=== PATIENT | female | born 1965 | race Caucasian/White ===

== ENCOUNTER 2020-10-16 11:43 | Inpatient (IN) ==
[2020-10-16] MEDS ORDERED: Morphine 4 MG/ML VIAL (1 ml) IV ONE (12:10)
[2020-10-16] MEDS ORDERED: Ondansetron 4 mg VIAL 2 MG/ML 2 ml VIAL IV ONE (12:10)
[2020-10-16] MEDS ORDERED: NS 0.9% 1000 ml BAG 1,000 ML IV ONE ×2 (12:10→14:20)
[2020-10-16 12:33] LABS: ABS Monocytes 0.6 10^3/ul (0-0.8); ABS Neutrophils 6.9 10^3/ul (1.5-7.7); Eosinophil % 0.3 %; Hematocrit 36 % (35-47); Hemoglobin 12.2 g/dL (12.0-16.0); Mean Corpuscular HGB Conc 34 g/dL (31-36); Mean Corpuscular Hemoglobin 33 pg (27-31); Mean Corpuscular Volume 97 fL (80-97); Mean Platelet Volume 7.7 fL (7.4-10.4); Platelet Count 303 10^3/uL (150-450); Red Blood Count 3.74 10^6 /uL (3.70-4.87); Red Cell Distribution Width 14 % (10-15); White Blood Count 8.5 10^3/uL (3.5-10.8)
[2020-10-16 12:51] LABS: Albumin 3.9 g/dL (3.2-5.2); Albumin/Globulin Ratio 0.9 (1-3); BUN/Creatinine Ratio 13.7 (8-20); C Reactive Protein 107.56 mg/L (<8.01); Calcium 9.5 mg/dL (8.6-10.3); EGFR African American 99.8 (>60); EGFR Non-African American 82.5 (>60); Globulin 4.4 g/dL (2-4); Magnesium 1.8 mg/dL (1.9-2.7); Total Bilirubin 1.5 mg/dL (0.2-1.0); Total Protein 8.3 g/dL (6.4-8.9)
[2020-10-16] MEDS ORDERED: fentaNYL 100 mcg/2 ml 50 MCG/ML VIAL IV SLOW PU ONE (14:55)
[2020-10-16] MEDS ORDERED: Iohexol 300 (CONTRAST) 10 ML SDV IV ONE (15:06)
[2020-10-16] MEDS ORDERED: Piperacillin/Tazobac ADVAN 3.375 GM in NS 0.9% 100 ml BAG 100 ML IV ONE (16:02)
[2020-10-16 16:57] LABS: Urine Appearance Clear; Urine Bilirubin Negative (Negative); Urine Blood Negative (Negative); Urine Color Yellow; Urine Glucose Negative (Negative); Urine Ketones Trace (Negative); Urine Nitrite Negative (Negative); Urine Protein Negative (Negative); Urine Urobilinogen Negative (Negative)
[2020-10-16 17:31] LABS: Urine Specific Gravity > 1.059 (1.010-1.030)
[2020-10-16] MEDS ORDERED: Morphine 2 MG/ML SYRINGE IV PRN (18:41)
[2020-10-16] MEDS ORDERED: Zosyn per Pharmacy NOTE FOLLOW UP SCH (19:00)
[2020-10-16] MEDS ORDERED: HYDROcodone/ACETAMIN 5/325 mg TAB PO PRN (20:39)
[2020-10-16] MEDS: NS 0.9% 1000 ml BAG 1,000 ML IV SCH (21:37)
[2020-10-16] MEDS: ZOSYN 3.375 GM Q8H per EXTENDED INFUSION IV SCH (21:37)
[2020-10-17] MEDS: ZOSYN 3.375 GM Q8H per EXTENDED INFUSION IV SCH ×3 (05:07→22:17)
[2020-10-17 06:19] LABS: ABS Eosinophils 0.1 10^3/ul (0-0.6); ABS Lymphocytes 1.5 10^3/ul (1.0-4.8); ABS Monocytes 0.5 10^3/ul (0-0.8); ABS Neutrophils 3.4 10^3/ul (1.5-7.7); Eosinophil % 1.7 %; Hematocrit 32 % (35-47); Hemoglobin 10.7 g/dL (12.0-16.0); Lymphocyte % 27.4 %; Mean Corpuscular HGB Conc 33 g/dL (31-36); Mean Corpuscular Hemoglobin 32 pg (27-31); Mean Corpuscular Volume 98 fL (80-97); Mean Platelet Volume 7.7 fL (7.4-10.4); Platelet Count 240 10^3/uL (150-450); Red Blood Count 3.31 10^6 /uL (3.70-4.87); Red Cell Distribution Width 14 % (10-15); White Blood Count 5.5 10^3/uL (3.5-10.8)
[2020-10-17 06:39] LABS: Albumin 3.2 g/dL (3.2-5.2); Albumin/Globulin Ratio 0.8 (1-3); BUN/Creatinine Ratio 12.3 (8-20); C Reactive Protein 73.04 mg/L (<8.01); Calcium 8.5 mg/dL (8.6-10.3); EGFR African American 99.8 (>60); EGFR Non-African American 82.5 (>60); Globulin 3.8 g/dL (2-4); Magnesium 1.9 mg/dL (1.9-2.7); Potassium 3.7 mmol/L (3.5-5.0); Total Bilirubin 1.1 mg/dL (0.2-1.0)
[2020-10-17] MEDS: NS 0.9% 1000 ml BAG 1,000 ML IV SCH (08:21)
[2020-10-17] MEDS: Ondansetron 4 mg VIAL 2 MG/ML 2 ml VIAL IV PRN (12:20)
[2020-10-17] MEDS ORDERED: HYDROmorphone 0.5 MG/0.5 ML SYRINGE IV PRN (12:33)
[2020-10-17 13:23] LABS: ABS Lymphocytes 0.8 10^3/ul (1.0-4.8); ABS Monocytes 0.3 10^3/ul (0-0.8); ABS Neutrophils 7.3 10^3/ul (1.5-7.7); Eosinophil % 0.4 %; Hematocrit 34 % (35-47); Hemoglobin 11.3 g/dL (12.0-16.0); Lymphocyte % 9.4 %; Mean Corpuscular HGB Conc 34 g/dL (31-36); Mean Corpuscular Hemoglobin 33 pg (27-31); Mean Corpuscular Volume 97 fL (80-97); Mean Platelet Volume 7.8 fL (7.4-10.4); Platelet Count 270 10^3/uL (150-450); Red Blood Count 3.45 10^6 /uL (3.70-4.87); Red Cell Distribution Width 14 % (10-15); White Blood Count 8.5 10^3/uL (3.5-10.8)
[2020-10-17 13:33] LABS: Albumin 3.5 g/dL (3.2-5.2); Albumin/Globulin Ratio 0.9 (1-3); BUN/Creatinine Ratio 13.4 (8-20); CRP High Sensitivity 60.32 mg/L (<2.00); Calcium 8.7 mg/dL (8.6-10.3); EGFR African American 110.2 (>60); Potassium 4.1 mmol/L (3.5-5.0); Total Bilirubin 1.3 mg/dL (0.2-1.0); Total Protein 7.5 g/dL (6.4-8.9)
[2020-10-17] MEDS ORDERED: Rocuronium 50 mg VIAL 10 mg/ml 5 ml VIAL (50 mg) ONE ×2 (14:45→17:18)
[2020-10-17] MEDS ORDERED: Midazolam 2 mg/2 ml VIAL 1 mg/ml 2 ml VIAL (2 mg) ONE (14:45)
[2020-10-17] MEDS ORDERED: Propofol 10 MG/ML 20 ML BTL ONE (14:46)
[2020-10-17] MEDS ORDERED: fentaNYL 250 mcg/5 ml 50 MCG/ML 5 ml VIAL (250 MCG) ONE (14:46)
[2020-10-17] MEDS ORDERED: HYDROmorphone 1 MG/1 ML SYRINGE ONE ×2 (16:05→19:19)
[2020-10-17] MEDS ORDERED: Ondansetron 4 mg VIAL 2 MG/ML 2 ml VIAL ONE ×2 (18:06→19:20)
[2020-10-17] MEDS ORDERED: Sugammadex 500 MG/5 ML 5 ml VIAL IV PUSH ONE (18:06)
[2020-10-17] MEDS ORDERED: Naloxone 0.4 mg VIAL 0.4 mg/ml 1 ml VIAL IV PRN (19:16)
[2020-10-17] MEDS ORDERED: Acetaminophen IV 1 GM/100ML 1,000 MG/100 ML VIAL IVPB ONE (19:16)
[2020-10-17] MEDS ORDERED: DiMENhydriNATE IV 50 mg/ml 1 ml VIAL IV PUSH PRN (19:16)
[2020-10-17] MEDS ORDERED: Ondansetron 4 mg VIAL 2 MG/ML 2 ml VIAL IV PRN (19:16)
[2020-10-17] MEDS ORDERED: Acetaminophen IV 1 GM/100ML 100 ML ONE (19:20)
[2020-10-17] MEDS ORDERED: Naloxone 0.4 mg VIAL 0.4 mg/ml 1 ml VIAL IV PUSH PRN (19:27)
[2020-10-17] MEDS: HYDROmorphone 1 MG/1 ML SYRINGE IV PRN ×2 (19:27→19:39)
[2020-10-17] MEDS ORDERED: fentaNYL 100 mcg/2 ml 50 MCG/ML VIAL ONE ×2 (19:28→19:37)
[2020-10-17] MEDS: fentaNYL 100 mcg/2 ml 50 MCG/ML VIAL IV PRN ×4 (19:29→19:50)
[2020-10-17] MEDS ORDERED: DiMENhydriNATE IV 50 mg/ml 1 ml VIAL ONE (19:42)
[2020-10-17] MEDS ORDERED: HYDROmorphone PCA 20 MG/20 ML PCA.SYRING PCA SCH (20:00)
[2020-10-17] MEDS ORDERED: Vancomycin SOL ORALSYR 50 MG/ML ML PO SCH (22:00)
[2020-10-18] MEDS: D5W 1/2 NS IVFLUID 1000 ML IV SCH ×2 (01:05→18:44)
[2020-10-18] MEDS: ZOSYN 3.375 GM Q8H per EXTENDED INFUSION IV SCH ×3 (04:04→20:47)
[2020-10-18 05:56] LABS: ABS Lymphocytes 1.5 10^3/ul (1.0-4.8); ABS Monocytes 0.6 10^3/ul (0-0.8); ABS Neutrophils 9.4 10^3/ul (1.5-7.7); Eosinophil % 0.4 %; Hematocrit 35 % (35-47); Hemoglobin 10.9 g/dL (12.0-16.0); Lymphocyte % 13.1 %; Mean Corpuscular HGB Conc 32 g/dL (31-36); Mean Corpuscular Hemoglobin 32 pg (27-31); Mean Corpuscular Volume 100 fL (80-97); Mean Platelet Volume 7.5 fL (7.4-10.4); Nucleated Red Blood Cells % 0.1; Platelet Count 292 10^3/uL (150-450); Red Blood Count 3.45 10^6 /uL (3.70-4.87); Red Cell Distribution Width 15 % (10-15); White Blood Count 11.6 10^3/uL (3.5-10.8)
[2020-10-18 06:00] LABS: Albumin 3.2 g/dL (3.2-5.2); Albumin/Globulin Ratio 0.9 (1-3); BUN/Creatinine Ratio 11.9 (8-20); Calcium 8.3 mg/dL (8.6-10.3); EGFR African American 110.2 (>60); Globulin 3.7 g/dL (2-4); Magnesium 1.7 mg/dL (1.9-2.7); Potassium 4.1 mmol/L (3.5-5.0); Total Bilirubin 1.2 mg/dL (0.2-1.0); Total Protein 6.9 g/dL (6.4-8.9)
[2020-10-18] MEDS ORDERED: Magnesium Sulfate 2 gm BAG 2 GM/50 ML BAG IVPB ONE (07:27)
[2020-10-18] MEDS ORDERED: HYDROmorphone PCA 20 MG/20 ML PCA.SYRING PCA SCH (08:59)
[2020-10-18] MEDS: Enoxaparin 40 MG/0.4 ML SYR SUBCUT SCH (14:02)
[2020-10-18] MEDS ORDERED: HYDROmorphone 1 MG/1 ML SYRINGE IV SLOW PU ONE (17:52)
[2020-10-18 18:18] LABS: ABS Eosinophils 0.1 10^3/ul (0-0.6); ABS Lymphocytes 1.4 10^3/ul (1.0-4.8); ABS Monocytes 0.7 10^3/ul (0-0.8); ABS Neutrophils 9.7 10^3/ul (1.5-7.7); Eosinophil % 0.6 %; Hematocrit 28 % (35-47); Hemoglobin 9.2 g/dL (12.0-16.0); Lymphocyte % 11.7 %; Mean Corpuscular HGB Conc 33 g/dL (31-36); Mean Corpuscular Hemoglobin 32 pg (27-31); Mean Corpuscular Volume 98 fL (80-97); Mean Platelet Volume 7.8 fL (7.4-10.4); Platelet Count 253 10^3/uL (150-450); Red Blood Count 2.84 10^6 /uL (3.70-4.87); Red Cell Distribution Width 15 % (10-15); White Blood Count 11.9 10^3/uL (3.5-10.8)
[2020-10-18 18:32] LABS: Albumin 2.8 g/dL (3.2-5.2); Albumin/Globulin Ratio 0.9 (1-3); BUN/Creatinine Ratio 12.5 (8-20); EGFR African American 101.4 (>60); EGFR Non-African American 83.8 (>60); Globulin 3.2 g/dL (2-4); Potassium 3.9 mmol/L (3.5-5.0); Total Bilirubin 1.1 mg/dL (0.2-1.0)
[2020-10-18] MEDS ORDERED: HYDROmorphone 1 MG/1 ML SYRINGE IV SLOW PU PRN (18:50)
[2020-10-18] MEDS: Ondansetron 4 mg VIAL 2 MG/ML 2 ml VIAL IV PRN (21:18)
[2020-10-19] MEDS: ZOSYN 3.375 GM Q8H per EXTENDED INFUSION IV SCH ×3 (03:40→19:55)
[2020-10-19 05:05] LABS: ABS Eosinophils 0.2 10^3/ul (0-0.6); ABS Lymphocytes 1.6 10^3/ul (1.0-4.8); ABS Monocytes 0.7 10^3/ul (0-0.8); ABS Neutrophils 7.6 10^3/ul (1.5-7.7); Eosinophil % 1.7 %; Hematocrit 26 % (35-47); Hemoglobin 8.7 g/dL (12.0-16.0); Lymphocyte % 15.5 %; Mean Corpuscular HGB Conc 33 g/dL (31-36); Mean Corpuscular Hemoglobin 33 pg (27-31); Mean Corpuscular Volume 99 fL (80-97); Mean Platelet Volume 7.3 fL (7.4-10.4); Platelet Count 244 10^3/uL (150-450); Red Blood Count 2.65 10^6 /uL (3.70-4.87); Red Cell Distribution Width 15 % (10-15)
[2020-10-19 05:21] LABS: Albumin 2.8 g/dL (3.2-5.2); Albumin/Globulin Ratio 0.9 (1-3); BUN/Creatinine Ratio 11.7 (8-20); EGFR African American 74.5 (>60); EGFR Non-African American 61.6 (>60); Globulin 3.2 g/dL (2-4); Magnesium 2.1 mg/dL (1.9-2.7); Potassium 3.5 mmol/L (3.5-5.0); Total Bilirubin 1.1 mg/dL (0.2-1.0)
[2020-10-19] MEDS: D5W 1/2 NS IVFLUID 1000 ML IV SCH (05:57)
[2020-10-19] MEDS: D5W 1/2 NS 1000 ml BAG 1,000 ML IV SCH (11:52)
[2020-10-19] MEDS: Enoxaparin 40 MG/0.4 ML SYR SUBCUT SCH (14:00)
[2020-10-19] MEDS: HYDROmorphone PCA 20 MG/20 ML PCA.SYRING PCA SCH (15:52)
[2020-10-20] MEDS: Ondansetron 4 mg VIAL 2 MG/ML 2 ml VIAL IV PRN (00:53)
[2020-10-20] MEDS: D5W 1/2 NS 1000 ml BAG 1,000 ML IV SCH ×2 (02:38→17:07)
[2020-10-20] MEDS: ZOSYN 3.375 GM Q8H per EXTENDED INFUSION IV SCH ×3 (05:42→20:27)
[2020-10-20 06:00] LABS: BUN/Creatinine Ratio 9.9 (8-20); Calcium 7.9 mg/dL (8.6-10.3); EGFR Non-African American 85.2 (>60); Potassium 3.5 mmol/L (3.5-5.0)
[2020-10-20 06:02] LABS: ABS Eosinophils 0.2 10^3/ul (0-0.6); ABS Lymphocytes 1.6 10^3/ul (1.0-4.8); ABS Monocytes 0.6 10^3/ul (0-0.8); ABS Neutrophils 4.8 10^3/ul (1.5-7.7); Eosinophil % 2.9 %; Hematocrit 26 % (35-47); Hemoglobin 8.5 g/dL (12.0-16.0); Lymphocyte % 21.8 %; Mean Corpuscular HGB Conc 33 g/dL (31-36); Mean Corpuscular Hemoglobin 32 pg (27-31); Mean Corpuscular Volume 97 fL (80-97); Mean Platelet Volume 7.6 fL (7.4-10.4); Platelet Count 256 10^3/uL (150-450); Red Blood Count 2.64 10^6 /uL (3.70-4.87); Red Cell Distribution Width 14 % (10-15); White Blood Count 7.2 10^3/uL (3.5-10.8)
[2020-10-20] MEDS: Enoxaparin 40 MG/0.4 ML SYR SUBCUT SCH (13:40)
[2020-10-20] MEDS ORDERED: Scopolamine PATCH Remove NOTE PATCH OFF ONE (19:17)
[2020-10-21] MEDS: ZOSYN 3.375 GM Q8H per EXTENDED INFUSION IV SCH ×3 (05:38→20:59)
[2020-10-21] MEDS: D5W 1/2 NS 1000 ml BAG 1,000 ML IV SCH ×2 (05:42→19:45)
[2020-10-21 06:16] LABS: ABS Eosinophils 0.2 10^3/ul (0-0.6); ABS Lymphocytes 1.2 10^3/ul (1.0-4.8); ABS Monocytes 0.5 10^3/ul (0-0.8); ABS Neutrophils 2.8 10^3/ul (1.5-7.7); Eosinophil % 3.9 %; Hematocrit 26 % (35-47); Hemoglobin 8.7 g/dL (12.0-16.0); Lymphocyte % 25.9 %; Mean Corpuscular HGB Conc 34 g/dL (31-36); Mean Corpuscular Hemoglobin 33 pg (27-31); Mean Corpuscular Volume 97 fL (80-97); Mean Platelet Volume 7.6 fL (7.4-10.4); Platelet Count 247 10^3/uL (150-450); Red Blood Count 2.68 10^6 /uL (3.70-4.87); Red Cell Distribution Width 15 % (10-15); White Blood Count 4.7 10^3/uL (3.5-10.8)
[2020-10-21 06:31] LABS: BUN/Creatinine Ratio 4.7 (8-20); Calcium 7.8 mg/dL (8.6-10.3); EGFR African American 116.1 (>60)
[2020-10-21 06:46] LABS: Potassium 3.4 mmol/L (3.5-5.0)
[2020-10-21] MEDS ORDERED: Potassium Chlor 20 meq TAB.ER PO ONE (07:59)
[2020-10-21] MEDS: Enoxaparin 40 MG/0.4 ML SYR SUBCUT SCH (13:22)
[2020-10-22] MEDS: ZOSYN 3.375 GM Q8H per EXTENDED INFUSION IV SCH ×3 (04:57→20:28)
[2020-10-22 05:43] LABS: ABS Eosinophils 0.2 10^3/ul (0-0.6); ABS Lymphocytes 1.6 10^3/ul (1.0-4.8); ABS Monocytes 0.6 10^3/ul (0-0.8); ABS Neutrophils 2.5 10^3/ul (1.5-7.7); Eosinophil % 3.7 %; Hematocrit 25 % (35-47); Hemoglobin 8.3 g/dL (12.0-16.0); Lymphocyte % 33.2 %; Mean Corpuscular HGB Conc 33 g/dL (31-36); Mean Corpuscular Hemoglobin 32 pg (27-31); Mean Corpuscular Volume 98 fL (80-97); Mean Platelet Volume 7.4 fL (7.4-10.4); Platelet Count 278 10^3/uL (150-450); Red Blood Count 2.58 10^6 /uL (3.70-4.87); Red Cell Distribution Width 14 % (10-15); White Blood Count 4.9 10^3/uL (3.5-10.8)
[2020-10-22 06:01] LABS: BUN/Creatinine Ratio 2.8 (8-20); Calcium 8.1 mg/dL (8.6-10.3); EGFR Non-African American 85.2 (>60); Potassium 4.2 mmol/L (3.5-5.0)
[2020-10-22] MEDS: HYDROmorphone PCA 20 MG/20 ML PCA.SYRING PCA SCH (06:19)
[2020-10-22] MEDS: D5W 1/2 NS 1000 ml BAG 1,000 ML IV SCH ×2 (07:59→20:31)
[2020-10-22] MEDS ORDERED: HYDROmorphone 0.5 MG/0.5 ML SYRINGE IV SLOW PU PRN (08:35)
[2020-10-22] MEDS ORDERED: HYDROcodone/ACETAMIN 5/325 mg TAB PO PRN (08:36)
[2020-10-22] MEDS: Enoxaparin 40 MG/0.4 ML SYR SUBCUT SCH (13:51)
[2020-10-22] MEDS ORDERED: HYDROmorphone PCA 20 MG/20 ML PCA.SYRING PCA SCH (14:35)
[2020-10-22] MEDS: Ondansetron 4 mg VIAL 2 MG/ML 2 ml VIAL IV PRN (23:15)
[2020-10-23] MEDS: ZOSYN 3.375 GM Q8H per EXTENDED INFUSION IV SCH ×3 (04:37→21:32)
[2020-10-23 06:29] LABS: ABS Eosinophils 0.2 10^3/ul (0-0.6); ABS Lymphocytes 1.4 10^3/ul (1.0-4.8); ABS Monocytes 0.5 10^3/ul (0-0.8); ABS Neutrophils 2.7 10^3/ul (1.5-7.7); Eosinophil % 3.7 %; Hematocrit 25 % (35-47); Hemoglobin 8.8 g/dL (12.0-16.0); Lymphocyte % 28.4 %; Mean Corpuscular HGB Conc 35 g/dL (31-36); Mean Corpuscular Hemoglobin 34 pg (27-31); Mean Corpuscular Volume 97 fL (80-97); Mean Platelet Volume 7.3 fL (7.4-10.4); Nucleated Red Blood Cells % 0.1; Platelet Count 294 10^3/uL (150-450); Red Cell Distribution Width 15 % (10-15); White Blood Count 4.8 10^3/uL (3.5-10.8)
[2020-10-23 06:46] LABS: BUN/Creatinine Ratio 3.2 (8-20); Calcium 8.2 mg/dL (8.6-10.3); EGFR African American 118.3 (>60); EGFR Non-African American 97.8 (>60); Potassium 3.5 mmol/L (3.5-5.0)
[2020-10-23] MEDS: Ondansetron 4 mg VIAL 2 MG/ML 2 ml VIAL IV PRN ×2 (11:07→17:26)
[2020-10-23] MEDS ORDERED: HYDROmorphone PCA 20 MG/20 ML PCA.SYRING PCA SCH (11:08)
[2020-10-23] MEDS: Enoxaparin 40 MG/0.4 ML SYR SUBCUT SCH (12:58)
[2020-10-24] MEDS: D5W 1/2 NS 1000 ml BAG 1,000 ML IV SCH (00:53)
[2020-10-24] MEDS: ZOSYN 3.375 GM Q8H per EXTENDED INFUSION IV SCH (04:37)
[2020-10-24] MEDS ORDERED: Calcium Carb (TUMS) 500 mg CHEW TAB PO PRN (06:32)
[2020-10-24 07:12] LABS: ABS Basophils 0.1 10^3/ul (0-0.2); ABS Eosinophils 0.2 10^3/ul (0-0.6); ABS Lymphocytes 1.5 10^3/ul (1.0-4.8); ABS Monocytes 0.6 10^3/ul (0-0.8); ABS Neutrophils 4.6 10^3/ul (1.5-7.7); Eosinophil % 2.8 %; Hematocrit 27 % (35-47); Hemoglobin 9.1 g/dL (12.0-16.0); Lymphocyte % 21.4 %; Mean Corpuscular HGB Conc 34 g/dL (31-36); Mean Corpuscular Hemoglobin 33 pg (27-31); Mean Corpuscular Volume 97 fL (80-97); Mean Platelet Volume 7.1 fL (7.4-10.4); Platelet Count 333 10^3/uL (150-450); Red Blood Count 2.81 10^6 /uL (3.70-4.87); Red Cell Distribution Width 15 % (10-15); White Blood Count 6.9 10^3/uL (3.5-10.8)
[2020-10-24 07:40] LABS: BUN/Creatinine Ratio 2.9 (8-20); Calcium 8.6 mg/dL (8.6-10.3); EGFR African American 104.7 (>60); EGFR Non-African American 86.6 (>60); Potassium 3.8 mmol/L (3.5-5.0)
[2020-10-24] MEDS: Ondansetron 4 mg VIAL 2 MG/ML 2 ml VIAL IV PRN (09:25)
[2020-10-24] MEDS: Enoxaparin 40 MG/0.4 ML SYR SUBCUT SCH (12:25)
[2020-10-25] MEDS: Ondansetron 4 mg VIAL 2 MG/ML 2 ml VIAL IV PRN (06:31)
[2020-10-25 06:55] LABS: ABS Basophils 0.1 10^3/ul (0-0.2); ABS Eosinophils 0.2 10^3/ul (0-0.6); ABS Lymphocytes 1.3 10^3/ul (1.0-4.8); ABS Monocytes 0.5 10^3/ul (0-0.8); Eosinophil % 2.3 %; Hematocrit 29 % (35-47); Hemoglobin 9.7 g/dL (12.0-16.0); Lymphocyte % 19.1 %; Mean Corpuscular HGB Conc 34 g/dL (31-36); Mean Corpuscular Hemoglobin 32 pg (27-31); Mean Corpuscular Volume 96 fL (80-97); Platelet Count 350 10^3/uL (150-450); Red Blood Count 2.99 10^6 /uL (3.70-4.87); Red Cell Distribution Width 15 % (10-15); White Blood Count 7.1 10^3/uL (3.5-10.8)
[2020-10-25 07:09] LABS: BUN/Creatinine Ratio 4.3 (8-20); Calcium 8.6 mg/dL (8.6-10.3); EGFR African American 104.7 (>60); EGFR Non-African American 86.6 (>60); Potassium 3.8 mmol/L (3.5-5.0)
[2020-10-25] MEDS: Enoxaparin 40 MG/0.4 ML SYR SUBCUT SCH (13:47)
[2020-10-25] MEDS: Nystatin SUSPENSION 100,000 UNITS/ML UDC PO SCH ×2 (16:13→20:53)
[2020-10-25] MEDS ORDERED: Nystatin TOP POWDER 15 GM BTL TOPICAL SCH (21:00)
[2020-10-26 06:17] LABS: ABS Basophils 0.1 10^3/ul (0-0.2); ABS Eosinophils 0.2 10^3/ul (0-0.6); ABS Lymphocytes 1.4 10^3/ul (1.0-4.8); ABS Monocytes 0.4 10^3/ul (0-0.8); ABS Neutrophils 3.1 10^3/ul (1.5-7.7); Eosinophil % 3.9 %; Hematocrit 26 % (35-47); Hemoglobin 8.8 g/dL (12.0-16.0); Lymphocyte % 27.6 %; Mean Corpuscular HGB Conc 33 g/dL (31-36); Mean Corpuscular Hemoglobin 33 pg (27-31); Mean Corpuscular Volume 97 fL (80-97); Mean Platelet Volume 6.8 fL (7.4-10.4); Platelet Count 300 10^3/uL (150-450); Red Blood Count 2.71 10^6 /uL (3.70-4.87); Red Cell Distribution Width 15 % (10-15); White Blood Count 5.1 10^3/uL (3.5-10.8)
[2020-10-26 06:40] LABS: BUN/Creatinine Ratio 5.4 (8-20); Calcium 8.4 mg/dL (8.6-10.3); EGFR African American 98.2 (>60); EGFR Non-African American 81.2 (>60); Magnesium 1.7 mg/dL (1.9-2.7); Potassium 3.5 mmol/L (3.5-5.0)
[2020-10-26] MEDS: Ondansetron 4 mg VIAL 2 MG/ML 2 ml VIAL IV PRN ×2 (07:58→15:33)
[2020-10-26] MEDS ORDERED: Magnesium Sulfate IV 1GM/100ML 1 GM/100 ML BAG IV ONE (07:59)
[2020-10-26] MEDS: Nystatin SUSPENSION 100,000 UNITS/ML UDC PO SCH (09:57)
[2020-10-26 11:15] VITALS: BP 124/78
[2020-10-26] MEDS: Enoxaparin 40 MG/0.4 ML SYR SUBCUT SCH (13:15)
== END 2020-10-26 16:25 | disposition home or self-care (01) | DRG 221 ==
LOC: ED 11:43 → SSU 18:34
PROVIDERS: ADMIT Pediatrics; ATTEND Surgery Surgical Critical Care

== ENCOUNTER 2021-03-11 07:52 | Inpatient (IN) ==
[~2021-03-11 07:52] MED LIST: Buffered Lidocaine 1% SYRIN 1 ml INTRADERM ONE; DiMENhydriNATE IV 50 mg/ml 1 ml VIAL IV PUSH ONE; Lactated Ringers 1000 ml BAG 1,000 ML IV SCH; Naloxone 0.4 mg VIAL 0.4 mg/ml 1 ml VIAL IV PRN; Ondansetron 4 mg VIAL 2 MG/ML 2 ml VIAL IV PRN
[2021-03-11] MEDS ORDERED: DiMENhydriNATE IV 50 mg/ml 1 ml VIAL ONE (08:10)
[2021-03-11] MEDS ORDERED: Buffered Lidocaine 1% SYRIN 1 ml INTRADERM ONE (08:10)
[2021-03-11] MEDS ORDERED: Heparin 5000 UNITS/ML 1 mL VIAL ONE (08:10)
[2021-03-11] MEDS ORDERED: Lidocaine 2% PF 5 ML VIAL ONE ×2 (08:14→08:15)
[2021-03-11] MEDS ORDERED: fentaNYL 250 mcg/5 ml 50 MCG/ML 5 ml VIAL (250 MCG) ONE (08:15)
[2021-03-11] MEDS ORDERED: Propofol 10 MG/ML 20 ML BTL ONE (08:15)
[2021-03-11] MEDS ORDERED: Rocuronium 50 mg VIAL 10 mg/ml 5 ml VIAL (50 mg) ONE ×4 (08:15→15:19)
[2021-03-11] MEDS ORDERED: Midazolam 2 mg/2 ml VIAL 1 mg/ml 2 ml VIAL (2 mg) ONE (08:15)
[2021-03-11] MEDS ORDERED: Ertapenem 1 GM in NS 0.9% 50 ML IVPB SCH (09:00)
[2021-03-11] MEDS ORDERED: Dexamethasone IV 4 MG/ML VIAL 1 ml VIAL ONE (10:42)
[2021-03-11] MEDS ORDERED: Ondansetron 4 mg VIAL 2 MG/ML 2 ml VIAL ONE (10:42)
[2021-03-11] MEDS ORDERED: HYDROmorphone 1 MG/1 ML SYRINGE ONE ×2 (13:16→18:27)
[2021-03-11] MEDS ORDERED: Phenylephrine 40 mcg/mL 10mL (400mcg) SYRINGE ONE ×2 (14:32)
[2021-03-11] MEDS ORDERED: fentaNYL 100 mcg/2 ml 50 MCG/ML VIAL ONE ×3 (15:10→18:30)
[2021-03-11] MEDS: fentaNYL 100 mcg/2 ml 50 MCG/ML VIAL IV PRN ×4 (18:18→18:36)
[2021-03-11] MEDS: HYDROmorphone 1 MG/1 ML SYRINGE IV PRN ×5 (18:28→19:04)
[2021-03-11] MEDS ORDERED: HYDROcodone/ACETAMIN 5/325 mg TAB ONE (18:46)
[2021-03-11] MEDS ORDERED: Naloxone 0.4 mg VIAL 0.4 mg/ml 1 ml VIAL IV PRN (18:46)
[2021-03-11] MEDS ORDERED: HYDROcodone/ACETAMIN 5/325 mg TAB PO PRN (18:46)
[2021-03-11] MEDS ORDERED: Lactated Ringers 1000 ml BAG 1,000 ML IVPB SCH (19:00)
[2021-03-11] MEDS: Ondansetron 4 mg VIAL 2 MG/ML 2 ml VIAL IV PRN (20:32)
[2021-03-11] MEDS ORDERED: Enoxaparin 40 MG/0.4 ML SYR SUBCUT SCH (21:00)
[2021-03-12] MEDS ORDERED: Lactated Ringers 1000 ml BAG 1,000 ML IV ONE (02:00)
[2021-03-12] MEDS: HYDROmorphone 0.5 MG/0.5 ML SYRINGE IV SLOW PU PRN ×3 (02:29→23:28)
[2021-03-12 02:42] LABS: ABS Lymphocytes 0.8 10^3/ul (1.0-4.8); ABS Monocytes 0.4 10^3/ul (0-0.8); ABS Neutrophils 9.5 10^3/ul (1.5-7.7); Hematocrit 31 % (35-47); Hemoglobin 10.9 g/dL (12.0-16.0); Lymphocyte % 7.8 %; Mean Corpuscular HGB Conc 35 g/dL (31-36); Mean Corpuscular Hemoglobin 34 pg (27-31); Mean Corpuscular Volume 98 fL (80-97); Mean Platelet Volume 7.6 fL (7.4-10.4); Nucleated Red Blood Cells % 0.1; Platelet Count 191 10^3/uL (150-450); Red Blood Count 3.19 10^6 /uL (3.70-4.87); Red Cell Distribution Width 14 % (10-15); White Blood Count 10.7 10^3/uL (3.5-10.8)
[2021-03-12] MEDS ORDERED: Dextran 70/Hypromellose Tears Eye Drops 15 ml BTL (for Artificials Tears) BOTH EYES PRN (02:51)
[2021-03-12 02:53] LABS: Potassium 4.3 mmol/L (3.5-5.0)
[2021-03-12 02:59] LABS: EGFR African American 53.5 (>60); EGFR Non-African American 44.2 (>60)
[2021-03-12] MEDS: Ondansetron 4 mg VIAL 2 MG/ML 2 ml VIAL IV PRN (05:57)
[2021-03-12] MEDS: HYDROcodone/ACETAMIN 5/325 mg TAB PO PRN (05:57)
[2021-03-12] MEDS ORDERED: NS 0.9% 1000 ml BAG 1,000 ML IV ONE (08:24)
[2021-03-12] MEDS ORDERED: Prochlorperazine 5 mg/ml 2 ml VIAL (10 mg) IV PRN (09:07)
[2021-03-12 10:25] LABS: Hematocrit 26 % (35-47); Hemoglobin 8.8 g/dL (12.0-16.0)
[2021-03-12] MEDS: Lactated Ringers 1000 ml BAG 1,000 ML IV SCH ×3 (11:03→18:49)
[2021-03-12 15:04] LABS: ABS Lymphocytes 1.1 10^3/ul (1.0-4.8); ABS Monocytes 0.6 10^3/ul (0-0.8); ABS Neutrophils 8.2 10^3/ul (1.5-7.7); Hematocrit 25 % (35-47); Hemoglobin 8.4 g/dL (12.0-16.0); Lymphocyte % 11.1 %; Mean Corpuscular HGB Conc 34 g/dL (31-36); Mean Corpuscular Hemoglobin 34 pg (27-31); Mean Corpuscular Volume 99 fL (80-97); Mean Platelet Volume 7.4 fL (7.4-10.4); Platelet Count 160 10^3/uL (150-450); Red Blood Count 2.48 10^6 /uL (3.70-4.87); Red Cell Distribution Width 14 % (10-15)
[2021-03-12 15:52] LABS: Calcium 7.4 mg/dL (8.6-10.3); EGFR African American 28.4 (>60); EGFR Non-African American 23.5 (>60)
[2021-03-12 19:25] LABS: Urine Appearance Cloudy; Urine Bilirubin Negative (Negative); Urine Blood 3+ (Negative); Urine Color Amber; Urine Glucose Negative (Negative); Urine Ketones Negative (Negative); Urine Nitrite Negative (Negative); Urine Protein 1+(30 mg/dL) (Negative); Urine Specific Gravity 1.019 (1.002-1.030); Urine Urobilinogen Negative (Negative)
[2021-03-12 19:31] LABS: Calcium 7.6 mg/dL (8.6-10.3); EGFR African American 28.1 (>60); EGFR Non-African American 23.3 (>60); Potassium 4.1 mmol/L (3.5-5.0)
[2021-03-12 19:32] LABS: Troponin I 0.01 ng/mL (<0.03)
[2021-03-12 19:38] LABS: Urine Amorphous Crystals Present (Absent); Urine Bacteria 1+ (Absent); Urine Red Blood Cell 3+(>10/hpf) (Absent); Urine Squamous Epithelial Cell Present (Absent); Urine White Blood Cell 3+(>20/hpf) (Absent)
[2021-03-12 19:42] LABS: Urine Creatinine Concentration 189.09 mg/dL; Urine Sodium Concentration < 18 mmol/L
[2021-03-12 20:22] LABS: Hematocrit 23 % (35-47); Hemoglobin 7.8 g/dL (12.0-16.0); Mean Corpuscular HGB Conc 34 g/dL (31-36); Mean Corpuscular Hemoglobin 34 pg (27-31); Mean Corpuscular Volume 99 fL (80-97); Mean Platelet Volume 8.1 fL (7.4-10.4); Platelet Count 153 10^3/uL (150-450); Red Cell Distribution Width 14 % (10-15); White Blood Count 10.6 10^3/uL (3.5-10.8)
[2021-03-12 20:36] LABS: Magnesium 1.1 mg/dL (1.9-2.7); Phosphorus 2.3 mg/dL (2.5-5.0)
[2021-03-12] MEDS ORDERED: Magnesium Sulf 4 GM/100 ML IV 4,000 MG/100 ML BAG IVPB ONE (20:52)
[2021-03-12] MEDS ORDERED: cefTRIAXone 1 gm/50 mL NS BAG 1 GM/50 ML BAG IVPB SCH (21:00)
[2021-03-12] MEDS ORDERED: Sodium Phosphate IV 15 MMOLE in NS 0.9% 250 ml 250 ML IVPB ONE (21:15)
[2021-03-12] MEDS ORDERED: Phenylephrine IV 50 MG in NS 0.9% 250 ml 245 ML IV SCH (22:00)
[2021-03-12] MEDS ORDERED: Piperacillin/Tazobac ADVAN 3.375 GM in NS 0.9% 100 ml BAG 100 ML IV ONE (22:31)
[2021-03-12] MEDS ORDERED: Zosyn per Pharmacy NOTE FOLLOW UP SCH (23:00)
[2021-03-13] MEDS: ZOSYN 3.375 GM Q8H per EXTENDED INFUSION IV SCH ×3 (04:36→21:39)
[2021-03-13] MEDS: HYDROmorphone 0.5 MG/0.5 ML SYRINGE IV SLOW PU PRN ×6 (04:46→20:39)
[2021-03-13 04:52] LABS: ABS Eosinophils 0.1 10^3/ul (0-0.6); ABS Lymphocytes 1.7 10^3/ul (1.0-4.8); ABS Monocytes 1.1 10^3/ul (0-0.8); ABS Neutrophils 10.1 10^3/ul (1.5-7.7); Eosinophil % 0.4 %; Hematocrit 26 % (35-47); Lymphocyte % 13.2 %; Mean Corpuscular HGB Conc 35 g/dL (31-36); Mean Corpuscular Hemoglobin 34 pg (27-31); Mean Corpuscular Volume 97 fL (80-97); Platelet Count 175 10^3/uL (150-450); Red Blood Count 2.69 10^6 /uL (3.70-4.87); Red Cell Distribution Width 15 % (10-15)
[2021-03-13] MEDS: Ondansetron 4 mg VIAL 2 MG/ML 2 ml VIAL IV PRN (05:08)
[2021-03-13 05:10] LABS: Calcium 7.5 mg/dL (8.6-10.3); EGFR African American 29.2 (>60); EGFR Non-African American 24.1 (>60); Magnesium 2.3 mg/dL (1.9-2.7); Potassium 3.8 mmol/L (3.5-5.0)
[2021-03-13] MEDS ORDERED: Potassium Chloride LIQUID 20 MEQ/15 ML LIQUID PO ONE (06:00)
[2021-03-13 06:53] LABS: Albumin 3.1 g/dL (3.2-5.2); Direct Bilirubin 1.1 mg/dL (0.03-0.18); Indirect Bilirubin 2.6 mg/dL (0.3-1.0); Total Bilirubin 3.7 mg/dL (0.2-1.0)
[2021-03-13 06:58] LABS: Albumin/Globulin Ratio 1.6 (1-3); Globulin 1.9 g/dL (2-4)
[2021-03-13 07:05] LABS: INR 1.14 (0.86-1.15)
[2021-03-13] MEDS: Pantoprazole VIAL 40 MG VIAL IV SCH (07:23)
[2021-03-13] MEDS: HYDROcodone/ACETAMIN 5/325 mg TAB PO PRN (11:51)
[2021-03-14 05:23] LABS: Hematocrit 25 % (35-47); Hemoglobin 8.5 g/dL (12.0-16.0); Mean Corpuscular HGB Conc 35 g/dL (31-36); Mean Corpuscular Hemoglobin 34 pg (27-31); Mean Corpuscular Volume 98 fL (80-97); Mean Platelet Volume 7.9 fL (7.4-10.4); Platelet Count 140 10^3/uL (150-450); Red Blood Count 2.51 10^6 /uL (3.70-4.87); Red Cell Distribution Width 15 % (10-15); White Blood Count 9.8 10^3/uL (3.5-10.8)
[2021-03-14 05:50] LABS: Albumin 3.3 g/dL (3.2-5.2); Albumin/Globulin Ratio 1.2 (1-3); Calcium 8.1 mg/dL (8.6-10.3); EGFR Non-African American 30.6 (>60); Globulin 2.7 g/dL (2-4); Magnesium 2.2 mg/dL (1.9-2.7); Phosphorus 2.5 mg/dL (2.5-5.0); Potassium 4.2 mmol/L (3.5-5.0); Total Bilirubin 2.5 mg/dL (0.2-1.0)
[2021-03-14] MEDS: ZOSYN 3.375 GM Q8H per EXTENDED INFUSION IV SCH (06:11)
[2021-03-14] MEDS: Pantoprazole VIAL 40 MG VIAL IV SCH (07:34)
[2021-03-14] MEDS: HYDROmorphone 0.5 MG/0.5 ML SYRINGE IV SLOW PU PRN ×2 (11:55→20:13)
[2021-03-14] MEDS: HYDROcodone/ACETAMIN 5/325 mg TAB PO PRN (13:21)
[2021-03-15] MEDS: HYDROcodone/ACETAMIN 5/325 mg TAB PO PRN ×4 (02:29→21:54)
[2021-03-15 06:51] LABS: ABS Eosinophils 0.1 10^3/ul (0-0.6); ABS Lymphocytes 1.2 10^3/ul (1.0-4.8); ABS Neutrophils 6.2 10^3/ul (1.5-7.7); Eosinophil % 1.4 %; Hematocrit 24 % (35-47); Hemoglobin 8.6 g/dL (12.0-16.0); Lymphocyte % 14.4 %; Mean Corpuscular HGB Conc 35 g/dL (31-36); Mean Corpuscular Hemoglobin 35 pg (27-31); Mean Corpuscular Volume 98 fL (80-97); Mean Platelet Volume 7.9 fL (7.4-10.4); Platelet Count 186 10^3/uL (150-450); Red Blood Count 2.49 10^6 /uL (3.70-4.87); Red Cell Distribution Width 14 % (10-15); White Blood Count 8.5 10^3/uL (3.5-10.8)
[2021-03-15 07:05] LABS: Albumin 3.4 g/dL (3.2-5.2); Albumin/Globulin Ratio 1.3 (1-3); Calcium 8.6 mg/dL (8.6-10.3); EGFR African American 49.8 (>60); EGFR Non-African American 41.1 (>60); Globulin 2.7 g/dL (2-4); Magnesium 2.1 mg/dL (1.9-2.7); Phosphorus 2.8 mg/dL (2.5-5.0); Potassium 4.1 mmol/L (3.5-5.0); Total Bilirubin 1.9 mg/dL (0.2-1.0); Total Protein 6.1 g/dL (6.4-8.9)
[2021-03-15] MEDS: Pantoprazole VIAL 40 MG VIAL IV SCH (09:09)
[2021-03-15] MEDS: Scopolamine PATCH Remove NOTE PATCH OFF SCH (09:09)
[2021-03-15] MEDS: Ondansetron 4 mg VIAL 2 MG/ML 2 ml VIAL IV PRN (12:27)
[2021-03-16 05:45] LABS: Calcium 8.8 mg/dL (8.6-10.3); EGFR African American 51.1 (>60); EGFR Non-African American 42.2 (>60)
[2021-03-16] MEDS: HYDROcodone/ACETAMIN 5/325 mg TAB PO PRN ×2 (08:19→16:11)
[2021-03-16] MEDS: Ondansetron 4 mg VIAL 2 MG/ML 2 ml VIAL IV PRN ×2 (08:20→20:55)
[2021-03-16] MEDS: Pantoprazole VIAL 40 MG VIAL IV SCH (08:20)
[2021-03-16] MEDS: HYDROmorphone 0.5 MG/0.5 ML SYRINGE IV SLOW PU PRN (20:55)
[2021-03-17] MEDS: HYDROcodone/ACETAMIN 5/325 mg TAB PO PRN (04:34)
[2021-03-17] MEDS: Ondansetron 4 mg VIAL 2 MG/ML 2 ml VIAL IV PRN ×3 (10:18→21:27)
[2021-03-17] MEDS: HYDROmorphone 0.5 MG/0.5 ML SYRINGE IV SLOW PU PRN ×3 (10:22→21:21)
[2021-03-17] MEDS: Pantoprazole VIAL 40 MG VIAL IV SCH (10:23)
[2021-03-18] MEDS: HYDROmorphone 0.5 MG/0.5 ML SYRINGE IV SLOW PU PRN (03:31)
[2021-03-18] MEDS: Ondansetron 4 mg VIAL 2 MG/ML 2 ml VIAL IV PRN ×3 (03:31→13:54)
[2021-03-18 06:32] LABS: ABS Eosinophils 0.1 10^3/ul (0-0.6); ABS Lymphocytes 0.9 10^3/ul (1.0-4.8); ABS Monocytes 0.8 10^3/ul (0-0.8); Eosinophil % 1.1 %; Hematocrit 27 % (35-47); Hemoglobin 9.1 g/dL (12.0-16.0); Lymphocyte % 9.5 %; Mean Corpuscular HGB Conc 35 g/dL (31-36); Mean Corpuscular Hemoglobin 34 pg (27-31); Mean Corpuscular Volume 99 fL (80-97); Mean Platelet Volume 8.1 fL (7.4-10.4); Platelet Count 316 10^3/uL (150-450); Red Blood Count 2.69 10^6 /uL (3.70-4.87); Red Cell Distribution Width 14 % (10-15); White Blood Count 9.9 10^3/uL (3.5-10.8)
[2021-03-18 06:49] LABS: Calcium 8.7 mg/dL (8.6-10.3); EGFR African American 74.3 (>60); EGFR Non-African American 61.4 (>60); Potassium 3.9 mmol/L (3.5-5.0)
[2021-03-18 08:48] LABS: Urine Appearance Cloudy; Urine Bilirubin Negative (Negative); Urine Blood 3+ (Negative); Urine Color Amber; Urine Glucose Negative (Negative); Urine Ketones Trace (Negative); Urine Nitrite Negative (Negative); Urine Protein 2+(100 mg/dL) (Negative); Urine Specific Gravity 1.018 (1.002-1.030); Urine Urobilinogen Negative (Negative)
[2021-03-18] MEDS: HYDROcodone/ACETAMIN 5/325 mg TAB PO PRN (08:49)
[2021-03-18 08:50] LABS: Urine Amorphous Crystals Present (Absent); Urine Bacteria 1+ (Absent); Urine Red Blood Cell 3+(>10/hpf) (Absent); Urine Squamous Epithelial Cell Present (Absent); Urine White Blood Cell 3+(>20/hpf) (Absent)
[2021-03-18] MEDS: Scopolamine PATCH Remove NOTE PATCH OFF SCH (08:50)
[2021-03-18] MEDS: Pantoprazole VIAL 40 MG VIAL IV SCH (08:50)
[2021-03-18] MEDS ORDERED: Lorazepam PYXIS KEY PRN (16:13)
[2021-03-18] MEDS: Metoclopramide 5 MG/ML VIAL (10 mg) IV SLOW PU SCH ×2 (16:33→23:22)
[2021-03-18] MEDS: LORazepam 2 mg VIAL 1 ml IV PUSH PRN (16:33)
[2021-03-18] MEDS ORDERED: Iohexol 300 (CONTRAST) 10 ML SDV IV ONE (17:55)
[2021-03-19] MEDS: NS 0.9% 1000 ml BAG 1,000 ML IV SCH ×2 (00:56→19:47)
[2021-03-19] MEDS: Metoclopramide 5 MG/ML VIAL (10 mg) IV SLOW PU SCH ×4 (03:37→23:57)
[2021-03-19] MEDS: LORazepam 2 mg VIAL 1 ml IV PUSH PRN ×3 (04:19→20:16)
[2021-03-19 06:00] LABS: ABS Lymphocytes 1.1 10^3/ul (1.0-4.8); ABS Monocytes 0.9 10^3/ul (0-0.8); ABS Neutrophils 7.8 10^3/ul (1.5-7.7); Eosinophil % 0.4 %; Hematocrit 26 % (35-47); Hemoglobin 9.2 g/dL (12.0-16.0); Lymphocyte % 10.9 %; Mean Corpuscular HGB Conc 35 g/dL (31-36); Mean Corpuscular Hemoglobin 34 pg (27-31); Mean Corpuscular Volume 97 fL (80-97); Mean Platelet Volume 7.9 fL (7.4-10.4); Platelet Count 413 10^3/uL (150-450); Red Cell Distribution Width 14 % (10-15); White Blood Count 9.8 10^3/uL (3.5-10.8)
[2021-03-19 06:33] LABS: Calcium 8.9 mg/dL (8.6-10.3); EGFR African American 76.1 (>60); EGFR Non-African American 62.9 (>60); Potassium 4.1 mmol/L (3.5-5.0)
[2021-03-19] MEDS: Pantoprazole VIAL 40 MG VIAL IV SCH (08:09)
[2021-03-19] MEDS: Ondansetron 4 mg VIAL 2 MG/ML 2 ml VIAL IV PRN (08:09)
[2021-03-19] MEDS ORDERED: Ondansetron 4 mg VIAL 2 MG/ML 2 ml VIAL ONE (14:48)
[2021-03-19] MEDS ORDERED: Succinylcholine 200 mg VIAL 20 mg/ml 10 ml VIAL (200 mg) ONE (14:48)
[2021-03-19] MEDS ORDERED: Lidocaine 2% PF 5 ML VIAL ONE (14:48)
[2021-03-19] MEDS ORDERED: Dexamethasone IV 4 MG/ML VIAL 1 ml VIAL ONE (14:48)
[2021-03-19] MEDS ORDERED: Midazolam 2 mg/2 ml VIAL 1 mg/ml 2 ml VIAL (2 mg) ONE (14:49)
[2021-03-19] MEDS ORDERED: Rocuronium 50 mg VIAL 10 mg/ml 5 ml VIAL (50 mg) ONE (14:49)
[2021-03-19] MEDS ORDERED: fentaNYL 100 mcg/2 ml 50 MCG/ML VIAL ONE (14:49)
[2021-03-19] MEDS ORDERED: Iohexol 180 (CONTRAST) 20 ML SDV IV ONE (15:27)
[2021-03-19] MEDS ORDERED: DiMENhydriNATE IV 50 mg/ml 1 ml VIAL ONE (16:06)
[2021-03-19] MEDS ORDERED: cefTRIAXone 1 gm/50 mL NS BAG 1 GM/50 ML BAG ONE (16:47)
[2021-03-19] MEDS ORDERED: Propofol 10 MG/ML 20 ML BTL ONE (18:22)
[2021-03-19] MEDS ORDERED: DiMENhydriNATE IV 50 mg/ml 1 ml VIAL IV PUSH PRN (18:22)
[2021-03-19] MEDS ORDERED: Acetaminophen IV 1 GM/100ML 100 ML IV ONE ×2 (18:22→18:31)
[2021-03-19] MEDS ORDERED: Naloxone 0.4 mg VIAL 0.4 mg/ml 1 ml VIAL IV PRN (18:22)
[2021-03-19] MEDS ORDERED: Benzocaine/Menthol Pain Spray - BTL 78 GM TOPICAL SCH (21:00)
[2021-03-19] MEDS: Phenol 1.4% Throat Spray 177 ml BTL TOPICAL SCH (23:54)
[2021-03-19] MEDS: Benzocaine/Menthol LOZ PO PRN (23:56)
[2021-03-20] MEDS: Phenol 1.4% Throat Spray 177 ml BTL TOPICAL SCH ×4 (04:28→21:33)
[2021-03-20] MEDS: LORazepam 2 mg VIAL 1 ml IV PUSH PRN (06:16)
[2021-03-20] MEDS: Benzocaine/Menthol LOZ PO PRN ×2 (06:16→21:33)
[2021-03-20] MEDS: Acetaminophen IV 1 GM/100ML 100 ML IV PRN (07:33)
[2021-03-20] MEDS: Pantoprazole VIAL 40 MG VIAL IV SCH (09:14)
[2021-03-20] MEDS: NS 0.9% 1000 ml BAG 1,000 ML IV SCH (09:22)
[2021-03-20] MEDS: HYDROmorphone 0.5 MG/0.5 ML SYRINGE IV SLOW PU PRN ×3 (09:22→20:58)
[2021-03-20 10:26] LABS: INR 1.31 (0.86-1.15)
[2021-03-20] MEDS ORDERED: Midazolam 2 mg/2 ml VIAL 1 mg/ml 2 ml VIAL (2 mg) ONE ×2 (14:14→14:27)
[2021-03-20] MEDS ORDERED: fentaNYL 100 mcg/2 ml 50 MCG/ML VIAL ONE (14:14)
[2021-03-21] MEDS: Acetaminophen IV 1 GM/100ML 100 ML IV PRN (01:55)
[2021-03-21] MEDS: LORazepam 2 mg VIAL 1 ml IV PUSH PRN (01:59)
[2021-03-21] MEDS: NS 0.9% 1000 ml BAG 1,000 ML IV SCH (04:28)
[2021-03-21] MEDS: HYDROmorphone 0.5 MG/0.5 ML SYRINGE IV SLOW PU PRN ×2 (06:30→13:12)
[2021-03-21] MEDS: Phenol 1.4% Throat Spray 177 ml BTL TOPICAL SCH (08:17)
[2021-03-21] MEDS: Pantoprazole VIAL 40 MG VIAL IV SCH (08:18)
[2021-03-21] MEDS: Scopolamine PATCH Remove NOTE PATCH OFF SCH (08:21)
[2021-03-21] MEDS: HYDROcodone/ACETAMIN 5/325 mg TAB PO PRN (17:53)
[2021-03-22] MEDS: Pantoprazole VIAL 40 MG VIAL IV SCH (08:58)
[2021-03-22] MEDS: HYDROcodone/ACETAMIN 5/325 mg TAB PO PRN (09:12)
[2021-03-22 11:15] VITALS: BP 133/80
== END 2021-03-22 12:55 | disposition home health service (06) | DRG 221 ==
LOC: AA 07:52 → SSU 18:14 → ICU 03-12 18:30 → SSU 03-14 10:28
PROVIDERS: ADMIT Surgery Surgical Critical Care; ATTEND Surgery Surgical Critical Care

== ENCOUNTER 2021-09-21 22:42 | Inpatient (IN) ==
[2021-09-21] MEDS ORDERED: Morphine 4 MG/ML VIAL (1 ml) IV ONE (23:06)
[2021-09-21] MEDS ORDERED: Ondansetron 4 mg VIAL 2 MG/ML 2 ml VIAL IV ONE (23:06)
[2021-09-22 00:04] LABS: Albumin 4.2 g/dL (3.2-5.2); Albumin/Globulin Ratio 1.1 (1-3); C Reactive Protein 2.99 mg/L (<8.01); Calcium 9.4 mg/dL (8.6-10.3); Globulin 3.8 g/dL (2-4); Potassium 3.8 mmol/L (3.5-5.0); Total Bilirubin 0.9 mg/dL (0.2-1.0); eGFR CKD-EPI 69.9 (>60)
[2021-09-22] MEDS ORDERED: NS 0.9% 1000 ml BAG 1,000 ML IV ONE ×2 (00:07→01:42)
[2021-09-22] MEDS ORDERED: Iohexol 300 (CONTRAST) 10 ML SDV IV ONE (00:08)
[2021-09-22 00:18] LABS: ABS Eosinophils 0.1 10^3/ul (0-0.6); ABS Lymphocytes 0.7 10^3/ul (1.0-4.8); ABS Monocytes 0.4 10^3/ul (0-0.8); ABS Neutrophils 6.8 10^3/ul (1.5-7.7); Eosinophil % 0.7 %; Hematocrit 38 % (35-47); Hemoglobin 12.5 g/dL (12.0-16.0); Lymphocyte % 9.3 %; Mean Corpuscular HGB Conc 33 g/dL (31-36); Mean Corpuscular Hemoglobin 31 pg (27-31); Mean Corpuscular Volume 94 fL (80-97); Mean Platelet Volume 7.6 fL (7.4-10.4); Platelet Count 191 10^3/uL (150-450); Red Blood Count 4.03 10^6 /uL (3.70-4.87); Red Cell Distribution Width 15 % (10-15)
[2021-09-22] MEDS ORDERED: Morphine 4 MG/ML VIAL (1 ml) IV ONE (01:46)
[2021-09-22 02:19] LABS: Rapid COVID-19 Molecular Undetected (Undetected)
[2021-09-22] MEDS ORDERED: Lorazepam PYXIS KEY PRN (03:06)
[2021-09-22] MEDS: Lactated Ringers 1000 ml BAG 1,000 ML IV SCH ×3 (03:42→23:42)
[2021-09-22] MEDS ORDERED: Morphine 2 MG/ML SYRINGE IV PRN (03:59)
[2021-09-22] MEDS: Ondansetron 4 mg VIAL 2 MG/ML 2 ml VIAL IV PRN ×2 (04:18→15:54)
[2021-09-22] MEDS: Heparin 5000 UNITS/ML 1 mL VIAL SUBCUT SCH ×4 (06:21→22:49)
[2021-09-22] MEDS ORDERED: Lactated Ringers 500 ml BAG 500 ML IV ONE (06:42)
[2021-09-22] MEDS ORDERED: Lactated Ringers 1000 ml BAG 1,000 ML IV ONE (08:29)
[2021-09-22 08:39] LABS: ABS Lymphocytes 0.6 10^3/ul (1.0-4.8); ABS Monocytes 0.3 10^3/ul (0-0.8); ABS Neutrophils 4.7 10^3/ul (1.5-7.7); Eosinophil % 0.1 %; Hematocrit 36 % (35-47); Mean Corpuscular HGB Conc 33 g/dL (31-36); Mean Corpuscular Hemoglobin 31 pg (27-31); Mean Corpuscular Volume 94 fL (80-97); Mean Platelet Volume 8.1 fL (7.4-10.4); Platelet Count 166 10^3/uL (150-450); Red Blood Count 3.82 10^6 /uL (3.70-4.87); Red Cell Distribution Width 15 % (10-15); White Blood Count 5.7 10^3/uL (3.5-10.8)
[2021-09-22 08:51] LABS: Albumin/Globulin Ratio 1.1 (1-3); C Reactive Protein 3.91 mg/L (<8.01); Calcium 9.5 mg/dL (8.6-10.3); Direct Bilirubin 0.2 mg/dL (0.03-0.18); Globulin 3.5 g/dL (2-4); Indirect Bilirubin 1.3 mg/dL (0.3-1.0); Magnesium 1.5 mg/dL (1.9-2.7); Potassium 4.2 mmol/L (3.5-5.0); Total Bilirubin 1.5 mg/dL (0.2-1.0); Total Protein 7.5 g/dL (6.4-8.9); eGFR CKD-EPI 79.9 (>60)
[2021-09-22] MEDS ORDERED: Ondansetron 4 mg VIAL 2 MG/ML 2 ml VIAL ONE (09:32)
[2021-09-22] MEDS ORDERED: Succinylcholine 200 mg VIAL 20 mg/ml 10 ml VIAL (200 mg) ONE (09:32)
[2021-09-22] MEDS ORDERED: Midazolam 2 mg/2 ml VIAL 1 mg/ml 2 ml VIAL (2 mg) ONE (09:32)
[2021-09-22] MEDS ORDERED: Propofol 10 MG/ML 20 ML BTL ONE (09:32)
[2021-09-22] MEDS ORDERED: EPHEDrine (Pressors) 50 MG/ML VIAL ONE (09:32)
[2021-09-22] MEDS ORDERED: Phenylephrine 40 mcg/mL 10mL (400mcg) SYRINGE ONE (09:32)
[2021-09-22] MEDS ORDERED: fentaNYL 250 mcg/5 ml 50 MCG/ML 5 ml VIAL (250 MCG) ONE (09:32)
[2021-09-22] MEDS ORDERED: Dexamethasone IV 4 MG/ML VIAL 1 ml VIAL ONE ×3 (09:32→13:45)
[2021-09-22] MEDS ORDERED: Rocuronium 50 mg VIAL 10 mg/ml 5 ml VIAL (50 mg) ONE ×3 (09:32→13:07)
[2021-09-22] MEDS ORDERED: Sodium Chloride 0.9% 10 ML ONE (09:37)
[2021-09-22] MEDS ORDERED: Naloxone 0.4 mg VIAL 0.4 mg/ml 1 ml VIAL IV PRN (09:43)
[2021-09-22] MEDS ORDERED: Buffered Lidocaine 1% SYRIN 1 ml INTRADERM ONE (09:43)
[2021-09-22] MEDS ORDERED: fentaNYL 100 mcg/2 ml 50 MCG/ML VIAL IV PRN (09:43)
[2021-09-22] MEDS ORDERED: HYDROmorphone 1 MG/1 ML SYRINGE IV PRN (09:43)
[2021-09-22] MEDS ORDERED: Sodium Citrate/Citric Acid LIQ 15 ML UDC PO ONE (09:43)
[2021-09-22] MEDS ORDERED: Ondansetron 4 mg VIAL 2 MG/ML 2 ml VIAL IV PRN (09:43)
[2021-09-22] MEDS ORDERED: Lidocaine 1% w EPI 1:200,000 SDV 30 ML VIAL ONE (09:54)
[2021-09-22] MEDS ORDERED: Bupivacaine 0.5% SDV PF 30ML VIAL ONE (09:54)
[2021-09-22] MEDS ORDERED: Lactated Ringers 1000 ml BAG 1,000 ML IV SCH (10:00)
[2021-09-22] MEDS ORDERED: ceFAZolin 2 GM PREMIX 2 GM/50 ML BAG ONE (10:05)
[2021-09-22 10:17] LABS: Erythrocyte Sed Rate 22 mm/Hr (0-29)
[2021-09-22] MEDS ORDERED: Labetalol IV 5 MG/ML 20 ml VIAL ONE (10:46)
[2021-09-22] MEDS ORDERED: hydrALAZINE 20 mg/ml 1 ML Vial IV IV SLOW PU PRN (13:35)
[2021-09-22] MEDS ORDERED: HYDROmorphone PCA 20 MG/20 ML PCA.SYRING PCA SCH (15:00)
[2021-09-22 15:48] LABS: Urine Appearance Clear; Urine Bilirubin Negative (Negative); Urine Blood Negative (Negative); Urine Color Straw; Urine Glucose 1+(50 mg/dL) (Negative); Urine Ketones Negative (Negative); Urine Nitrite Negative (Negative); Urine Protein Negative (Negative); Urine Specific Gravity 1.013 (1.002-1.030); Urine Urobilinogen Negative (Negative)
[2021-09-22] MEDS: LORazepam 2 mg VIAL 1 ml IV PUSH PRN (17:24)
[2021-09-22] MEDS ORDERED: Phenol 1.4% Throat Spray 177 ml BTL TOPICAL PRN (21:54)
[2021-09-23] MEDS ORDERED: Phenol 1.4% Throat Spray 177 ml BTL TOPICAL PRN (04:00)
[2021-09-23 04:58] LABS: ABS Lymphocytes 0.5 10^3/ul (1.0-4.8); ABS Monocytes 0.5 10^3/ul (0-0.8); ABS Neutrophils 6.6 10^3/ul (1.5-7.7); Hematocrit 31 % (35-47); Hemoglobin 10.6 g/dL (12.0-16.0); Lymphocyte % 7.2 %; Mean Corpuscular HGB Conc 34 g/dL (31-36); Mean Corpuscular Hemoglobin 32 pg (27-31); Mean Corpuscular Volume 93 fL (80-97); Platelet Count 171 10^3/uL (150-450); Red Blood Count 3.36 10^6 /uL (3.70-4.87); Red Cell Distribution Width 15 % (10-15); White Blood Count 7.6 10^3/uL (3.5-10.8)
[2021-09-23 05:26] LABS: Calcium 9.1 mg/dL (8.6-10.3); Potassium 3.9 mmol/L (3.5-5.0); eGFR CKD-EPI 77.7 (>60)
[2021-09-23] MEDS: Heparin 5000 UNITS/ML 1 mL VIAL SUBCUT SCH ×3 (06:50→22:36)
[2021-09-23] MEDS: LORazepam 2 mg VIAL 1 ml IV PUSH PRN (07:06)
[2021-09-23] MEDS: Lactated Ringers 1000 ml BAG 1,000 ML IV SCH ×2 (08:43→17:19)
[2021-09-23] MEDS ORDERED: HYDROmorphone 0.5 MG/0.5 ML SYRINGE IV SLOW PU PRN (14:57)
[2021-09-23] MEDS: HYDROcodone/ACETAMIN 5/325 mg TAB PO PRN (17:21)
[2021-09-24] MEDS: LORazepam 2 mg VIAL 1 ml IV PUSH PRN (00:48)
[2021-09-24] MEDS: Lactated Ringers 1000 ml BAG 1,000 ML IV SCH ×2 (00:49→09:03)
[2021-09-24] MEDS: Heparin 5000 UNITS/ML 1 mL VIAL SUBCUT SCH (05:45)
[2021-09-24 07:22] LABS: ABS Monocytes 0.3 10^3/ul (0-0.8); ABS Neutrophils 4.3 10^3/ul (1.5-7.7); Eosinophil % 0.8 %; Hematocrit 30 % (35-47); Hemoglobin 10.1 g/dL (12.0-16.0); Lymphocyte % 17.9 %; Mean Corpuscular HGB Conc 34 g/dL (31-36); Mean Corpuscular Hemoglobin 32 pg (27-31); Mean Corpuscular Volume 94 fL (80-97); Mean Platelet Volume 8.1 fL (7.4-10.4); Platelet Count 149 10^3/uL (150-450); Red Cell Distribution Width 15 % (10-15); White Blood Count 5.6 10^3/uL (3.5-10.8)
[2021-09-24 07:32] VITALS: BP 169/87
[2021-09-24] MEDS: Ondansetron 4 mg VIAL 2 MG/ML 2 ml VIAL IV PRN (07:39)
[2021-09-24] MEDS: HYDROcodone/ACETAMIN 5/325 mg TAB PO PRN (07:39)
== END 2021-09-24 10:50 | disposition home or self-care (01) | DRG 223 ==
LOC: ED 22:42 → SSU 09-22 02:02 → SUATTDRO 09-22 02:02 → SSU 09-22 03:27
PROVIDERS: ADMIT Internal Medicine; ATTEND Surgery

== ENCOUNTER 2022-02-04 06:42 | Inpatient (IN) ==
[2022-02-04] MEDS ORDERED: Ondansetron 4 mg VIAL 2 MG/ML 2 ml VIAL IV ONE (06:50)
[2022-02-04] MEDS: Lactated Ringers 1000 ml BAG 1,000 ML IV SCH ×3 (07:29→20:58)
[2022-02-04 07:31] LABS: ABS Eosinophils 0.1 10^3/ul (0-0.6); ABS Lymphocytes 2.2 10^3/ul (1.0-4.8); ABS Monocytes 0.8 10^3/ul (0-0.8); ABS Neutrophils 13.8 10^3/ul (1.5-7.7); Eosinophil % 0.4 %; Hematocrit 42 % (35-47); Hemoglobin 14.2 g/dL (12.0-16.0); Lymphocyte % 13.1 %; Mean Corpuscular HGB Conc 34 g/dL (31-36); Mean Corpuscular Hemoglobin 30 pg (27-31); Mean Corpuscular Volume 89 fL (80-97); Mean Platelet Volume 7.8 fL (7.4-10.4); Nucleated Red Blood Cells % 0.1; Platelet Count 281 10^3/uL (150-450); Red Blood Count 4.74 10^6 /uL (3.70-4.87); Red Cell Distribution Width 15 % (10-15); White Blood Count 16.9 10^3/uL (3.5-10.8)
[2022-02-04 07:40] LABS: INR 1.1 (0.86-1.15)
[2022-02-04] MEDS ORDERED: Metoclopramide 5 MG/ML VIAL (10 mg) ONE (08:01)
[2022-02-04] MEDS ORDERED: Morphine 4 MG/ML VIAL (1 ml) ONE (08:01)
[2022-02-04 08:07] LABS: ALT 36 U/L (7-52); AST 66 U/L (13-39); Albumin 4.3 g/dL (3.2-5.2); Albumin/Globulin Ratio 1.1 (1-3); Alkaline Phosphatase 150 U/L (35-149); Anion Gap 13 mmol/L (2-11); Blood Urea Nitrogen 15 mg/dL (6-24); C Reactive Protein 9.57 mg/L (<8.01); CO2 Carbon Dioxide 27 mmol/L (22-32); Calcium 9.7 mg/dL (8.6-10.3); Chloride 95 mmol/L (101-111); Globulin 3.8 g/dL (2-4); Glucose 374 mg/dL (70-100); Magnesium 1.6 mg/dL (1.9-2.7); Potassium 3.3 mmol/L (3.5-5.0); Sodium 135 mmol/L (135-145); Total Protein 8.1 g/dL (6.4-8.9); eGFR CKD-EPI 77.7 (>60)
[2022-02-04] MEDS ORDERED: Metoclopramide 5 MG/ML VIAL (10 mg) IV SLOW PU ONE (08:07)
[2022-02-04] MEDS ORDERED: Morphine 4 MG/ML VIAL (1 ml) IV ONE (08:07)
[2022-02-04] MEDS ORDERED: Magnesium Sulfate IV 1GM/100ML 1 GM/100 ML BAG IV ONE ×2 (08:15→11:27)
[2022-02-04 08:27] LABS: Lipase 4987 U/L (11.0-82.0)
[2022-02-04] MEDS ORDERED: Morphine 2 MG/ML SYRINGE IV ONE (08:44)
[2022-02-04 09:49] LABS: Alcohol, S < 13 mg/dL (<13); Triglycerides 550 mg/dL
[2022-02-04] MEDS ORDERED: NS 0.9% 1000 ml BAG 1,000 ML IV ONE (11:08)
[2022-02-04] MEDS ORDERED: NS 0.9% 1000 ml BAG 1,000 ML IV SCH (11:15)
[2022-02-04] MEDS ORDERED: Thiamine 100 MG/ML 2 ml VIAL (200 mg) IM ONE (11:33)
[2022-02-04] MEDS ORDERED: Thiamine 100 MG/ML 2 ml VIAL 100 MG, Folic Acid IV 1 MG, Multiple Vitamin IV ADULT 10 M... IV ONE (11:34)
[2022-02-04] MEDS ORDERED: Lorazepam PYXIS KEY PRN (11:50)
[2022-02-04] MEDS: KCL 20 MEQ/100 ML IVPREMIX 20 MEQ/100 ML BAG IV SCH ×3 (11:53→22:21)
[2022-02-04] MEDS ORDERED: LORazepam 2 mg VIAL 1 ml IV PUSH SCH (12:00)
[2022-02-04] MEDS: Pantoprazole VIAL 40 MG VIAL IV SCH (12:29)
[2022-02-04] MEDS: HYDROmorphone 0.5 MG/0.5 ML SYRINGE IV PRN ×4 (12:34→22:19)
[2022-02-04 15:26] LABS: Urine Appearance Cloudy; Urine Bilirubin Negative (Negative); Urine Blood Negative (Negative); Urine Color Amber; Urine Glucose 3+(>=500 mg/dL) (Negative); Urine Ketones Trace (Negative); Urine Nitrite Negative (Negative); Urine Protein 1+(30 mg/dL) (Negative); Urine Specific Gravity 1.039 (1.002-1.030); Urine Urobilinogen Negative (Negative)
[2022-02-04 15:31] LABS: Urine Bacteria 1+ (Absent); Urine Red Blood Cell 2+(6-10/hpf) (Absent); Urine Squamous Epithelial Cell Present (Absent); Urine White Blood Cell 3+(>20/hpf) (Absent)
[2022-02-04] MEDS ORDERED: cefTRIAXone 1 gm/50 mL D5W 1 GM/50 ML BAG IV ONE (16:30)
[2022-02-04] MEDS ORDERED: cefTRIAXone 1 gm/50 mL D5W 1 GM/50 ML BAG IV SCH (16:30)
[2022-02-04] MEDS: Metoclopramide 5 MG/ML VIAL (10 mg) IV PRN ×2 (16:39→22:19)
[2022-02-04] MEDS ORDERED: Dextrose 50% Syringe 50 ml 25 GM/50 ML SYRINGE IV PUSH PRN (18:06)
[2022-02-04] MEDS ORDERED: Lactated Ringers 1000 ml BAG 1,000 ML IV ONE (19:53)
[2022-02-04] MEDS ORDERED: Lactated Ringers 1000 ml BAG 1,000 ML IV SCH (20:00)
[2022-02-05] MEDS: HYDROmorphone 1 MG/1 ML SYRINGE IV PRN ×2 (01:20→04:18)
[2022-02-05] MEDS: Lactated Ringers 1000 ml BAG 1,000 ML IV SCH ×3 (03:01→05:44)
[2022-02-05] MEDS ORDERED: Lactated Ringers 1000 ml BAG 1,000 ML IV ONE (03:01)
[2022-02-05] MEDS: Metoclopramide 5 MG/ML VIAL (10 mg) IV PRN (04:18)
[2022-02-05] MEDS ORDERED: Lactated Ringers 1000 ml BAG 1,000 ML IV SCH ×4 (05:00→16:05)
[2022-02-05 05:36] LABS: Hematocrit 45 % (35-47); Hemoglobin 14.1 g/dL (12.0-16.0); Mean Corpuscular HGB Conc 32 g/dL (31-36); Mean Corpuscular Hemoglobin 29 pg (27-31); Mean Corpuscular Volume 93 fL (80-97); Mean Platelet Volume 8.6 fL (7.4-10.4); Platelet Count 176 10^3/uL (150-450); Red Cell Distribution Width 15 % (10-15); White Blood Count 17.4 10^3/uL (3.5-10.8)
[2022-02-05 05:42] LABS: INR 1.31 (0.86-1.15)
[2022-02-05 06:00] LABS: Calcium 7.1 mg/dL (8.6-10.3); eGFR CKD-EPI 18.8 (>60)
[2022-02-05 06:03] LABS: Potassium 5.8 mmol/L (3.5-5.0)
[2022-02-05 06:31] LABS: RBC Morphology Normal (Normal)
[2022-02-05 06:32] LABS: ABS Lymphocytes 1.5 10^3/ul (1.0-4.8); ABS Monocytes 0.8 10^3/ul (0-0.8); ABS Neutrophils 15.1 10^3/ul (1.5-7.7); Eosinophil % 0.1 %; Lymphocyte % 8.7 %; Nucleated Red Blood Cells % 0.1
[2022-02-05 06:33] LABS: Albumin 2.7 g/dL (3.2-5.2); Albumin/Globulin Ratio 1.1 (1-3); Direct Bilirubin 0.5 mg/dL (0.03-0.18); Globulin 2.4 g/dL (2-4); Indirect Bilirubin 0.8 mg/dL (0.3-1.0); Total Bilirubin 1.3 mg/dL (0.2-1.0); Total Protein 5.1 g/dL (6.4-8.9)
[2022-02-05] MEDS ORDERED: Piperacillin/Tazobac ADVAN 3.375 GM in NS 0.9% 100 ml BAG 100 ML IV ONE (06:46)
[2022-02-05] MEDS ORDERED: CALCIUM GLUCONATE 1GM/50ML NS 1 GM/50 ML BAG IV ONE (06:50)
[2022-02-05] MEDS ORDERED: Dextrose 50% Syringe 50 ml 25 GM/50 ML SYRINGE IV PUSH ONE (07:00)
[2022-02-05] MEDS ORDERED: Zosyn per Pharmacy NOTE FOLLOW UP SCH (07:00)
[2022-02-05] MEDS: Norepinephrine 16MCG/ML BAGD5W 4,000 MCG/250 ML BAG IV SCH ×5 (07:00→18:10)
[2022-02-05] MEDS: HYDROmorphone 0.5 MG/0.5 ML SYRINGE IV PRN ×2 (07:10→13:34)
[2022-02-05 08:47] LABS: Magnesium 1.6 mg/dL (1.9-2.7); Phosphorus 3.4 mg/dL (2.5-5.0)
[2022-02-05] MEDS ORDERED: Multivitamins/Minerals TAB PO SCH (09:00)
[2022-02-05] MEDS ORDERED: Magnesium Sulf 4 GM/100 ML IV 4,000 MG/100 ML BAG IVPB ONE (09:09)
[2022-02-05 10:58] LABS: PCO2 Arterial 28 mmHg (35-45); PO2 Arterial 89 mmHg (80-100)
[2022-02-05] MEDS: Pantoprazole VIAL 40 MG VIAL IV SCH (11:39)
[2022-02-05 12:09] LABS: Hematocrit 43 % (35-47); Hemoglobin 13.7 g/dL (12.0-16.0); Mean Corpuscular HGB Conc 32 g/dL (31-36); Mean Corpuscular Hemoglobin 30 pg (27-31); Mean Corpuscular Volume 93 fL (80-97); Platelet Count 172 10^3/uL (150-450); Red Blood Count 4.64 10^6 /uL (3.70-4.87); Red Cell Distribution Width 16 % (10-15); White Blood Count 24.6 10^3/uL (3.5-10.8)
[2022-02-05 12:13] LABS: ABS Basophils 0.1 10^3/ul (0-0.2); ABS Lymphocytes 1.8 10^3/ul (1.0-4.8); ABS Monocytes 1.2 10^3/ul (0-0.8); ABS Neutrophils 21.5 10^3/ul (1.5-7.7); Eosinophil % 0.1 %; Lymphocyte % 7.4 %; Nucleated Red Blood Cells % 0.1
[2022-02-05 12:40] LABS: Albumin 2.7 g/dL (3.2-5.2); Calcium 7.7 mg/dL (8.6-10.3); Globulin 2.6 g/dL (2-4); Magnesium 2.7 mg/dL (1.9-2.7); Potassium 4.9 mmol/L (3.5-5.0); Total Bilirubin 1.9 mg/dL (0.2-1.0); Total Protein 5.3 g/dL (6.4-8.9); eGFR CKD-EPI 14.4 (>60)
[2022-02-05] MEDS ORDERED: Acetaminophen IV 1 GM/100ML 100 ML IV ONE ×2 (13:33→13:35)
[2022-02-05] MEDS ORDERED: Lidocaine 1% VIAL 10 MG/ML VIAL ONE (13:42)
[2022-02-05] MEDS ORDERED: Rocuronium 50 mg VIAL 10 mg/ml 5 ml VIAL (50 mg) ONE (13:52)
[2022-02-05] MEDS ORDERED: Propofol 10 mg/ml 100 ML BTL 100 ML ONE (13:56)
[2022-02-05] MEDS ORDERED: PHENYLEPHRINE DRIP IVPREMIX 50 MG/250 ML BAG IV ONE (14:02)
[2022-02-05] MEDS: PHENYLEPHRINE DRIP IVPREMIX 50 MG/250 ML BAG IV SCH ×3 (14:02→22:44)
[2022-02-05] MEDS ORDERED: Sodium Bicarbonate 8.4% SYR 50 ml SYRINGE ONE (14:05)
[2022-02-05] MEDS ORDERED: Etomidate 40 mg/20 ml (2 MG/ML) 20 ml VIAL (40 mg) ONE (14:10)
[2022-02-05] MEDS ORDERED: Propofol 10 MG/ML 20 ML BTL ONE (14:10)
[2022-02-05] MEDS: Propofol 10 mg/ml 100 ML BTL 100 ML IV SCH ×2 (14:49→19:44)
[2022-02-05] MEDS ORDERED: Sodium Bicarbonate 8.4% SYR 50 ml SYRINGE IV ONE ×3 (14:52→14:53)
[2022-02-05] MEDS: ZOSYN 3.375 GM Q8H per EXTENDED INFUSION IV SCH ×2 (14:53→21:48)
[2022-02-05] MEDS ORDERED: Metoclopramide 5 MG/ML VIAL (10 mg) IV PRN (15:00)
[2022-02-05 15:22] VITALS: BP 104/78
[2022-02-05] MEDS: fentaNYL 100 mcg/2 ml 50 MCG/ML VIAL IV SLOW PU PRN ×2 (16:45→20:35)
[2022-02-05] MEDS ORDERED: NORMOSOL-R pH 7.4 1000 mL BAG 1,000 ML IV SCH ×2 (17:00→17:48)
[2022-02-05 17:41] LABS: Urine Appearance Cloudy; Urine Bilirubin Negative (Negative); Urine Blood 2+ (Negative); Urine Color Yellow; Urine Glucose 3+(>=500 mg/dL) (Negative); Urine Ketones Negative (Negative); Urine Nitrite Negative (Negative); Urine Protein Negative (Negative); Urine Specific Gravity 1.009 (1.002-1.030); Urine Urobilinogen Negative (Negative)
[2022-02-05] MEDS ORDERED: Vasopressin 100 UNITS in D5W 250 ml BAG 245 ML IV SCH (17:45)
[2022-02-05 17:46] LABS: Urine Bacteria 1+ (Absent); Urine Red Blood Cell 3+(>10/hpf) (Absent); Urine Squamous Epithelial Cell Present (Absent); Urine White Blood Cell 3+(>20/hpf) (Absent)
[2022-02-05 17:54] LABS: Urine Creatinine Concentration 56.68 mg/dL
[2022-02-05 18:20] LABS: PCO2 Arterial 33 mmHg (35-45); PO2 Arterial 70 mmHg (80-100)
[2022-02-05 18:26] LABS: Hematocrit 41 % (35-47); Hemoglobin 12.9 g/dL (12.0-16.0)
[2022-02-05] MEDS: Chlorhexidine MOUTHWASH 0.12% 15 ML UDC SWISH SPIT SCH ×2 (18:27→22:04)
[2022-02-05] MEDS ORDERED: Sodium Bicarbonate 8.4% SYR 50 ml SYRINGE IV SCH (18:30)
[2022-02-05 19:03] LABS: Calcium 6.9 mg/dL (8.6-10.3); eGFR CKD-EPI 12.1 (>60)
[2022-02-05 19:05] LABS: Potassium 5.1 mmol/L (3.5-5.0)
[2022-02-05] MEDS ORDERED: Norepinephrine *QUAD STRENGTH* 16 mg/250 mL NS per protocol IV SCH (20:00)
[2022-02-05] MEDS: Sodium Bicarbonate 8.4% SYR 50 ml SYRINGE IV SCH ×2 (20:31→22:04)
[2022-02-05] MEDS: Heparin 5000 UNITS/ML 1 mL VIAL SUBCUT SCH (20:32)
[2022-02-05] MEDS ORDERED: Ondansetron 4 mg VIAL 2 MG/ML 2 ml VIAL ONE (20:32)
[2022-02-05] MEDS ORDERED: Ondansetron 4 mg VIAL 2 MG/ML 2 ml VIAL IV ONE (21:00)
[2022-02-05] MEDS ORDERED: Heparin 5000 UNITS/ML 1 mL VIAL SUBCUT SCH (22:00)
[2022-02-05] MEDS: NORMOSOL-R pH 7.4 1000 mL BAG 1,000 ML IV SCH (22:05)
[2022-02-05] MEDS ORDERED: fentaNYL 100 mcg/2 ml 50 MCG/ML VIAL IV SLOW PU ONE (22:57)
[2022-02-05] MEDS ORDERED: Acetaminophen IV 1 GM/100ML 100 ML IV PRN (23:16)
[2022-02-06 00:06] LABS: PCO2 Arterial 30 mmHg (35-45); PO2 Arterial 77 mmHg (80-100)
[2022-02-06 00:10] LABS: Hematocrit 39 % (35-47); Hemoglobin 12.5 g/dL (12.0-16.0)
[2022-02-06] MEDS: Sodium Bicarbonate 8.4% SYR 50 ml SYRINGE IV SCH ×3 (00:24→07:01)
[2022-02-06 00:25] LABS: Potassium 4.7 mmol/L (3.5-5.0); eGFR CKD-EPI 12.1 (>60)
[2022-02-06 00:27] LABS: Calcium 6.4 mg/dL (8.6-10.3)
[2022-02-06] MEDS ORDERED: CALCIUM GLUCONATE 1GM/50ML NS 1 GM/50 ML BAG IV ONE (00:27)
[2022-02-06] MEDS ORDERED: NORMOSOL-R pH 7.4 1000 mL BAG 1,000 ML IV SCH ×2 (01:00→07:25)
[2022-02-06] MEDS: NORMOSOL-R pH 7.4 1000 mL BAG 1,000 ML IV SCH ×2 (01:41→06:26)
[2022-02-06] MEDS: Propofol 10 mg/ml 100 ML BTL 100 ML IV SCH (01:41)
[2022-02-06] MEDS: Chlorhexidine MOUTHWASH 0.12% 15 ML UDC SWISH SPIT SCH ×2 (02:25→06:39)
[2022-02-06] MEDS: fentaNYL 100 mcg/2 ml 50 MCG/ML VIAL IV SLOW PU PRN (03:07)
[2022-02-06] MEDS ORDERED: ALBUMIN HUMAN 25% IV ONE (03:47)
[2022-02-06] MEDS: Albumin Human 25% 25 GM/100 ML IV SCH ×3 (03:50→05:58)
[2022-02-06] MEDS ORDERED: Albumin Human 5% 25.0 GM/500 ML BTL IV ONE (04:00)
[2022-02-06] MEDS ORDERED: 1/2 NS IV SCH ×2 (04:00→06:00)
[2022-02-06] MEDS ORDERED: D5W IV SCH ×2 (04:00→06:00)
[2022-02-06] MEDS ORDERED: SODIUM BICARB IV SCH ×2 (04:00→06:00)
[2022-02-06] MEDS: ZOSYN 3.375 GM Q8H per EXTENDED INFUSION IV SCH (04:10)
[2022-02-06 04:31] LABS: Magnesium 2.4 mg/dL (1.9-2.7); Potassium 3.7 mmol/L (3.5-5.0); Total Bilirubin 1.5 mg/dL (0.2-1.0); Total Protein 3.9 g/dL (6.4-8.9); eGFR CKD-EPI 12.1 (>60)
[2022-02-06] MEDS ORDERED: Prochlorperazine 5 mg/ml 2 ml VIAL (10 mg) ONE (04:52)
[2022-02-06] MEDS ORDERED: Ondansetron 4 mg VIAL 2 MG/ML 2 ml VIAL IV PRN (05:07)
[2022-02-06] MEDS ORDERED: Calcium Gluconate 2 GM in NS 0.9% 100 ml BAG 100 ML IV ONE (05:07)
[2022-02-06] MEDS ORDERED: Albumin Human 25% 75 GM/300 ML BTL IV ONE (05:07)
[2022-02-06] MEDS ORDERED: Prochlorperazine 5 mg/ml 2 ml VIAL (10 mg) IV ONE (05:08)
[2022-02-06 05:15] LABS: Albumin/Globulin Ratio 1.1 (1-3); Globulin 1.9 g/dL (2-4)
[2022-02-06] MEDS: CALCIUM GLUCONATE 1GM/50ML NS BAG IV SCH ×2 (05:47→07:18)
[2022-02-06 06:05] LABS: Hematocrit 31 % (35-47); Hemoglobin 9.9 g/dL (12.0-16.0)
[2022-02-06 06:08] LABS: PCO2 Arterial 32 mmHg (35-45); PO2 Arterial 73 mmHg (80-100)
[2022-02-06 06:21] LABS: Hematocrit 44 % (35-47); Hemoglobin 14.3 g/dL (12.0-16.0); Mean Corpuscular HGB Conc 32 g/dL (31-36); Mean Corpuscular Hemoglobin 29 pg (27-31); Mean Corpuscular Volume 91 fL (80-97); Mean Platelet Volume 9.2 fL (7.4-10.4); Platelet Count 88 10^3/uL (150-450); Red Blood Count 4.85 10^6 /uL (3.70-4.87); Red Cell Distribution Width 16 % (10-15); White Blood Count 14.2 10^3/uL (3.5-10.8)
[2022-02-06 06:46] LABS: Potassium 4.2 mmol/L (3.5-5.0); eGFR CKD-EPI 12.1 (>60)
[2022-02-06 06:51] LABS: Hematocrit 30 % (35-47); Hemoglobin 9.9 g/dL (12.0-16.0)
[2022-02-06 06:59] LABS: Calcium 6.2 mg/dL (8.6-10.3)
[2022-02-06] MEDS: PHENYLEPHRINE DRIP IVPREMIX 50 MG/250 ML BAG IV SCH (06:59)
[2022-02-06] MEDS ORDERED: Calcium Gluconate 1 GM/10 ML VIAL (in Pyxis) IV PUSH ONE (07:21)
[2022-02-06] MEDS ORDERED: Folic Acid IV 1 MG in NS 0.9% 50 ML 50 ML IV ONE (07:43)
[2022-02-06 07:48] LABS: PCO2 Arterial 32 mmHg (35-45); PO2 Arterial 80 mmHg (80-100)
[2022-02-06 07:54] LABS: Hematocrit 30 % (35-47); Hemoglobin 9.7 g/dL (12.0-16.0); Mean Corpuscular HGB Conc 33 g/dL (31-36); Mean Corpuscular Hemoglobin 30 pg (27-31); Mean Corpuscular Volume 91 fL (80-97); Red Cell Distribution Width 16 % (10-15); White Blood Count 14.7 10^3/uL (3.5-10.8)
[2022-02-06] MEDS ORDERED: Midazolam 50 MG VIAL IV DRIP 50 ML IV SCH (08:00)
[2022-02-06] MEDS ORDERED: Thiamine 100 MG/ML 2 ml VIAL 100 MG in NS 0.9% 50 ML 50 ML IV SCH (08:00)
[2022-02-06] MEDS ORDERED: Hydrocortisone INJ 100 MG/2ML 2 ML VIAL IV ONE (08:18)
[2022-02-06] MEDS ORDERED: PHENYLEPHRINE DRIP IVPREMIX 50 MG/250 ML BAG IV SCH (08:30)
[2022-02-06 08:44] LABS: Calcium 6.6 mg/dL (8.6-10.3); Magnesium 2.5 mg/dL (1.9-2.7); Potassium 4.4 mmol/L (3.5-5.0)
[2022-02-06 08:49] LABS: eGFR CKD-EPI 11.6 (>60)
[2022-02-06 08:58] LABS: Anisocytosis 1+; Polychromasia 1+
[2022-02-06 08:59] LABS: ABS Basophils 0.1 10^3/ul (0-0.2); ABS Eosinophils 0.1 10^3/ul (0-0.6); ABS Lymphocytes 2.4 10^3/ul (1.0-4.8); ABS Monocytes 0.9 10^3/ul (0-0.8); ABS Neutrophils 11.3 10^3/ul (1.5-7.7); Eosinophil % 0.6 %; Lymphocyte % 16.5 %; Mean Platelet Volume 8.8 fL (7.4-10.4); Nucleated Red Blood Cells % 0.1; Platelet Count 93 10^3/uL (150-450)
[2022-02-06] MEDS ORDERED: Norepinephrine *QUAD STRENGTH* 16 mg/250 mL NS per protocol IV SCH (09:00)
[2022-02-06] MEDS ORDERED: Propofol 10 mg/ml 100 ML BTL 100 ML IV SCH (09:00)
[2022-02-06] MEDS ORDERED: MULTIPLE VITAMIN IVPB SCH (09:00)
[2022-02-06] MEDS: Pantoprazole VIAL 40 MG VIAL IV SCH (09:04)
[2022-02-06] MEDS: Heparin 5000 UNITS/ML 1 mL VIAL SUBCUT SCH (09:05)
[2022-02-06 09:51] LABS: ABS Eosinophils 0.1 10^3/ul (0-0.6); ABS Lymphocytes 2.1 10^3/ul (1.0-4.8); ABS Monocytes 0.8 10^3/ul (0-0.8); ABS Neutrophils 11.2 10^3/ul (1.5-7.7); Eosinophil % 0.5 %; Lymphocyte % 14.6 %; Nucleated Red Blood Cells % 0.1
== END 2022-02-06 09:53 | disposition short-term general hospital (02) | DRG 951 ==
LOC: ED 06:42 → EDHOLD 11:28 → SUATTDRO 11:28 → SSU 15:43 → ICU 02-05 06:54
PROVIDERS: ADMIT Hospitalist; ATTEND Internal Medicine